=== PATIENT | male | born 1975 | race Caucasian/White ===

== ENCOUNTER 2023-12-02 19:17 | Emergency (ER) | payer OTHER ==
[~2023-12-02] VITALS: Ht 172.7 cm; Wt 80.0 kg
[2023-12-02 19:24] VITALS: TEMP 98.4
--- NOTE | 2023-12-02 19:54 | NUR ---
patient supine in bed with sun glassess on rr even un labored conversing with family member 2/10 on non verbal pain scale
[2023-12-02 19:59] LABS: BASOPHILS % (AUTO) 0.3 % (0-1); EOSINOPHILS # (AUTO) 0.1 X10'3 (0-0.9); EOSINOPHILS % (AUTO) 0.8 % (0-6); HEMATOCRIT 45.2 % (42.0-52.0); HEMOGLOBIN 15.6 g/dl (14.0-17.9); LYMPHOCYTES % (AUTO) 14.7 % (21-51); MEAN CORPUSCULAR HEMOGLOBIN 32.5 PG (27.0-31.0); MEAN CORPUSCULAR HGB CONC 34.4 g/dL (33.0-36.5); MEAN CORPUSCULAR VOLUME 94.5 FL (78-98); MEAN PLATELET VOLUME 7.3 FL (7.4-10.4); MONOCYTES # (AUTO) 0.7 X10'3 (0-0.9); MONOCYTES % (AUTO) 5.1 % (2-12); NEUTROPHILS # (AUTO) 10.8 X10'3 (1.8-7.7); NEUTROPHILS % (AUTO) 79.1 % (42-75); PLATELET COUNT 350 X10'3 (140-440); RED BLOOD COUNT 4.78 X10'6 (4.70-6.10); RED CELL DISTRIBUTION WIDTH 13.3 % (11.5-14.5); WHITE BLOOD COUNT 13.6 X10'3 (4.5-11.0)
[2023-12-02 20:19] LABS: ALANINE AMINOTRANSFERASE 21 U/L (12-78); ALBUMIN 3.9 G/DL (3.4-5.0); ALKALINE PHOSPHATASE 104 IU/L (46-116); ANION GAP 9 (8-16); ASPARTATE AMINO TRANSFERASE 18 U/L (10-37); BILIRUBIN,TOTAL 1.1 MG/DL (0.1-1.0); BLOOD UREA NITROGEN 9 MG/DL (7-18); BUN/CREATININE RATIO 7.2 (10.0-20.0); CALCIUM 9.4 MG/DL (8.5-10.1); CHLORIDE 105 MMOL/L (99-107); CREATININE 1.25 MG/DL (0.60-1.10); GLUCOSE 128 MG/DL (70-104); POTASSIUM 3.6 MMOL/L (3.5-5.1); SODIUM 141 MMOL/L (135-145); TOTAL CARBON DIOXIDE 26.6 MMOL/L (24-32); TOTAL PROTEIN 7.8 G/DL (6.4-8.2); eCRCL 70 ML/MIN; eGFR 62 ML/MIN
[2023-12-02 20:26] LABS: PRO BRAIN NATRIURETIC PEPTIDE < 30 PG/ML (0-125)
[2023-12-02 20:34] LABS: ETHANOL < 10 MG/DL (<10); MAGNESIUM 1.9 MG/DL (1.5-2.4)
[2023-12-02] MEDS: normal saline 1000ML IV soln IVB ONE (20:35)
[2023-12-02] MEDS: morphine 2 MG/ML inj. syringe IV PRN (20:36)
[2023-12-02] MEDS: ketorolac trometh 30MG/ML vial 30 MG/ML VIAL IV ONE (20:36)
[2023-12-02] MEDS: sildenafil citrate 20mg tablet PO SCH (20:44)
[2023-12-02 20:59] LABS: BILIRUBIN,URINE NEGATIVE (Neg); CLARITY,URINE CLOUDY (Clear); COLOR,URINE YELLOW (Yellow); GLUCOSE, URINE NEGATIVE (Neg); KETONES,URINE 15 mg/dl (Neg); LEUKOCYTE ESTERASE ,URINE NEGATIVE (Neg); NITRITES, URINE NEGATIVE (Neg); OCCULT BLOOD,URINE MODERATE (Neg); PH,URINE >=9.0 (4.8-8.0); PROTEIN,URINE 100 mg/dl (Neg); UROBILINOGEN,URINE 0.2 E.U/dL (0.2-1.0)
[2023-12-02 21:07] LABS: UA COLLECTION TYPE CLN CATCH MIDSTREAM
[2023-12-02 21:11] LABS: SQUAMOUS EPITHELIAL CELL,UR FEW /LPF (FEW)
[2023-12-02 21:12] LABS: BACTERIA,URINE FEW /HPF (Neg); MUCUS STRANDS FEW /LPF (Neg); RBC,URINE 50-100 /HPF (0-2); WBC,URINE 0-4 /HPF (0-4)
[2023-12-02] MEDS: sildenafil citrate 20mg tablet PO ONE (21:23)
--- NOTE | 2023-12-02 21:24 | NUR ---
CONTACT JULIET "SISTER." PH#
--- NOTE | 2023-12-02 23:43 | NUR ---
dr. juárez at bedside
[2023-12-02 23:46] VITALS: BP 133/88; PULSE 78; RESP 16; O2SAT 98
[2023-12-02] MEDS ORDERED: TADA5TAB2 PO (23:47)
[2023-12-02] MEDS ORDERED: NAPR-56 PO (23:47)
== END 2023-12-03 00:03 | disposition home or self-care (01) ==
LOC: ER 19:18
DX: N23 Unspecified renal colic (principal); F15.10 Other stimulant abuse, uncomplicated; F17.200 Nicotine dependence, unspecified, uncomplicated; F12.90 Cannabis use, unspecified, uncomplicated; Z79.899 Other long term (current) drug therapy
CPT/HCPCS: 36415; 71045; 74176; 80053; 80320; 81001; 83735; 83880; 84484; 85025; 93005; 96361; 96374; 96375; 99285; J1885; J2270; J7030